=== PATIENT | female | born 1945 | race Caucasian/White ===

== ENCOUNTER 2024-11-09 10:43 | Inpatient (IN) | payer MEDICARE, OTHER, SELFPAY ==
--- NOTE | 2024-09-22 12:27 | CM ---
Cm reviewed medical records. Patient confirmed demographics. Patient lives independently with in a [place] community. Patient does not have a history of VN or SNF. Patient does have an ice machine is currently working with Ryan from [facility]
regarding required equipment. Patient is active with PCP. Patient has medication coverage.
Patient's daughter who is a nurse practitioner will be available for support post operatively and will be staying with overnight.
Patient has made her outpatient PT appointments at [facility] 11/13.
PLAN: home with family support and outpatient PT
[2024-10-25 14:21] VITALS: BMI 26.2
[2024-10-25 14:41] LABS: Hematocrit 39.1 % (37.0-47.0); Hemoglobin 12.7 g/dL (12.0-16.0); Mean Corp Hgb Conc. 32.5 g/dL (33.0-37.0); Mean Corpuscular Volume 87.7 fL (81.0-99.0); Platelet Count 253 10^3/uL (130-400); Red Cell Dist. Width 14.8 % (11.5-14.5)
[2024-10-25 15:29] LABS: ALT (SGPT) < 10 U/L (0-35); AST (SGOT) 20 U/L (14-36); Albumin 3.7 g/dl (3.5-5.0); Alkaline Phosphatase 133 U/L (38-126); Blood Urea Nitrogen 11 mg/dl (7-17); Calcium 9.5 mg/dl (8.4-10.2); Carbon Dioxide 27 mmol/L (22-30); Chloride 108 mmol/L (98-107); Estimated Creatinine Clearance 64 ml/min; Glucose 91 mg/dl (70-99); Potassium 5.1 mmol/L (3.5-5.1); Sodium 140 mmol/L (135-145); Total Protein 6.0 g/dl (6.3-8.2); eGFR > 60.00
[2024-10-26 08:50] LABS: Glycohemoglobin (HgbA1c) 6.2 % (4.0-5.6)
[2024-11-03 08:32] VITALS: BMI 26.2
[2024-11-09] VITALS (7 sets, daily range): BP systolic 110–142; BP diastolic 51–70
[2024-11-09] MEDS: TYLENOL 650 MG PO (12:18)
[2024-11-09] MEDS: NORMOSOL-R/PLASMALYTE-A 1000 IV ×2 (12:18→17:11)
--- NOTE | 2024-11-09 13:11 | W.PN.UPDATE ---
Update Note
Progress Note Update
R knee OA s/p R TKA w/ Dr Shukla 11/09/24
- EARLY DISCHARGE
DVT prophylaxis - ASA, b/l venous foot pumps
CAD based on elevated coronary artery calcium score 2018 - continue ASA but at 325 mg dosing x4 weeks for blood clot prevention
HTN - + parameters - monitor BP
GERD, hiatal hernia, and remote GI ulcer with bleed - continue PPI therapy, Pepcid HS
- Minimize NSAIDs
Iron deficiency anemia, on oral supplementation - non-invasive hgb in AM
- Continue PO iron. Consider IV iron
Hypercholesterolemia
Mild valvular disease
Chronic bilateral lower extremity edema
Colon polyps
Diverticulosis
Ocular migraines.
Lumbar degenerative disc disease with stenosis
Left-sided breast cancer, 2019, status post left lumpectomy with lymph node excision, radiation, and previous Letrozole
Overactive bladder
Septic shock, 02/2022, due to UTI
Rosacea
COVID-19, 09/2024, without residual deficits
Remote history of tobacco abuse
--- NOTE | 2024-11-09 15:41 | W.PN.UPDATE ---
Update Note
Progress Note Update
79-year-old female s/p R TKA 11/09/[address] Shukla.
- WBAT RLE with use of walker for assistance.
- Limit active ROM 0-90 degrees. No passive ROM.
- Trend knee brace unlocked from 0-90 degrees; to be worn with all weightbearing activities.
- Obtain repeat x-rays of right knee at 2 week post-op visit.
--- NOTE | 2024-11-09 16:25 | OR.RPT ---
Operative Report
Operative Report
Orthopaedic Surgery Operative Note
DATE OF OPERATION: 11/09/2024
PREOPERATIVE DIAGNOSES: Osteoarthritis, right knee.
POSTOPERATIVE DIAGNOSES: Osteoarthritis, right knee.
OPERATION PERFORMED:
1) Right total knee arthroplasty (CPT 80634)
2) Intraosseous administration of analgesic (CPT 07465)
SURGEON: Salomon Shukla MD
ASSISTANTS: Luis Green PA-C who helped with patient and limb positioning and retraction
ANESTHESIA: Spinal by anesthesia plus intraoperative infusion of morphine into the tibial metaphysis by Dr. Shukla
COMPLICATIONS: Peeling of the periosteum overlying the medial femoral condyle without fracture
ESTIMATED BLOOD LOSS: 20mL
DRAINS: None
TOURNIQUET TIME: 65 minutes.
IMPLANTS:
- Ronen Persona CR Femur, size 8
- Ronen Persona tibia base plate, size C
- Ronen Persona medial constrained articular surface, 12 mm
- DJO [place] bone cement
INDICATIONS: The patient presented to my office with debilitating right knee pain due to osteoarthritis. We reviewed the natural history of this problem, as well as the risks, benefits, and alternatives of various treatment options. The patient
exhausted all nonoperative treatment options and wished to proceed with knee replacement surgery. The patient understood the risks which included, but were not limited to, bleeding, infection, failure to relieve pain, more pain than preop, damage to
blood vessels and nerves, need for reoperation, mechanical failure of the implants, wound healing problems, stiffness, instability, blood clot, pulmonary embolism, myocardial infarction, pneumonia, arrhythmia, CVA, and . The patient accepted
these risks and wished to proceed. All questions were answered, and informed consent was obtained.
PROCEDURE IN DETAIL: The patient was identified in the preoperative holding area. The right knee was identified as the operative site. The patient was taken in the operating room and placed in a supine position on the operating table. Spinal
anesthesia was performed. IV antibiotics and tranexamic acid were administered. An SCD was placed on the left lower extremity. A well-padded tourniquet was placed on the proximal thigh. All bony prominences were well padded. The right lower
extremity was prepped and draped in the usual sterile fashion.
We performed a surgical time-out. An interarticular block was performed with local anesthetic with epinephrine. The limb was exsanguinated with an Esmarch bandage, then the tourniquet was inflated to 250 mmHg. I performed interosseous administration
of morphine-saline solution via a Jamshidi style intraosseous needle into the proximal medial tibial metaphysis as described by Janusz Chandra MD. This was performed to aid in pain control. A midline skin incision was made followed by a medial
parapatellar arthrotomy. A subperiosteal peel was performed on the medial tibia. I excised part of the infrapatellar fat pad to improve our visualization as well as tissue over anterior femur. The patella was everted and the knee was flexed. I
excised the remnants of the anterior and posterior cruciate ligaments as well as tibial and femoral osteophytes with rongeurs. The knee was stiff with marked flexion stiffness to only about 90 degrees. She had a flexion contracture as well. The bone
was markedly osteoporotic, so extra care was taken throughout the exposure and retracting to avoid bony injury.
The knee was flexed, and the extramedullary tibial cutting guide was aligned. [place] was aligned at neutral, rotation was centered on the tibial tubercle, and coronal alignment was aligned with the mechanical axis of the tibia and center of the ankle
joint. The cut height was 2mm off the medial tibia joint surface due to marked varus. The guide was secured into place. The MCL and LCL were protected. The tibia surface was cut. The cut surface was inspected after removal to ensure appropriate
height and slope based on the preoperative plan. The cut was checked with a drop elvin. It was centered nicely at the ankle.
A drill was used to open the femoral canal. The intramedullary distal femoral cutting guide was inserted into the femur. This was set at 5 degrees +1. This was secured into place with three pins. The cut level was checked with an tiffanie wing. The
distal femur was cut through the cutting guide. The IM guide was reinserted to double check that the level of resection was flush and in appropriate alignment.
Sherman�s line and the transepicondylar axis were marked on the femur. The femoral sizing guide was applied to the anterior femur. Pins were inserted, and the 4-in-1 cutting guide was applied and secured into place. The rotation was compared to
Mundo�s line, the transepicondylar axis, and the neutral tibia cut and was found to be appropriate. The width was checked and found to be appropriate and lateralized on the femur. The anterior, posterior, and chamfur cuts were made. A lamina
test rack operator was used to open the flexion gap, and posterior osteophytes were removed with a curved osteotome. There were extensive osteophytes about the tibia and femur. The remnant medial and lateral meniscus were also removed. I prophylactically
cauterized the lateral geniculate arteries. A 10mm spacer block was applied to the flexion gap and was noted to be balanced medially and laterally. The knee was extended, and the block showed symmetric to extension and flexion gaps.
The tibia was exposed and sized. Rotation was set in line with the tibial tubercle and congruent with the femur. The trial was secured into place with two pins. The trial femur was impacted into place, and a trial articular surface was placed. The
knee was taken through range of motion and noted to be stable throughout the arc of motion without gaping or excess tension. The patella tracked centrally throughout the arc of motion without need for further releases. There weren't full thickness
cartilage changes on the patella.
The trials were removed. The tibia keel was prepared with the punch and the drill. The bone surfaces were irrigated with sterile saline and dried. The cement was mixed in a vacuum mixer. Cement gun was used to apply cement to the tibial surface and
the undersurface of the tibial implant. Cement was pressurized into the tibial canal and tibia surface. The tibial component was impacted into place. Excess cement was removed. Cement was applied to the femoral surface and the femoral component. The
femoral component was impacted into place, and excess cement removed. A trial articular surface was inserted, and the knee was extended while the cement polymerized. The tourniquet was let down, and meticulous hemostasis was achieved. Dilute
betadine was poured into the wound and allowed to soak for 3 minutes. The knee was irrigated with copious normal saline.
As the cement was hardening, there was noted some periosteal peeling about the medial femoral epicondyle with the small outer shell of bone. The condyle was intact without fracture or instability. Decision was made, in light of this, to use a post
operative hinged knee brace to support the region to prevent avulsion of the MCL. Once the cement was polymerized, the trial articular surface was removed. Any excess cement was removed. The knee was trialed, and the final articular surface was
selected and inserted into the tibial locking mechanism. The knee was reduced. A fresh drape was applied to the surgical field.
The arthrotomy was closed with 0-PDS. Once closed, an interarticular block was performed with local anesthetic with epi. The deep dermal layer was closed with 2-0 PDS, and the subcuticular skin was closed with 3-0 monocryl. A Dermabond Prineo
dressing was applied to the skin in full flexion. Once this was completely dry, a sterile waterproof dressing was applied.
The anesthesia team performed an adductor canal block in the OR. The patient awoke from anesthesia without any difficulties. The sponge and instrument counts were correct x2 at the end of the case.
Plan:
WBAT RLE with hinged knee brace; okay to remove brace when at rest
Active ROM 0-90
No passive motion
Yosi Shukla MD
[2024-11-09] MEDS: ROXICODONE 5 MG PO (17:11)
[2024-11-09] MEDS: ASPIRIN 325 MG PO (17:12)
[2024-11-09] MEDS: PROTONIX 40 MG PO (17:12)
[2024-11-09] MEDS: TYLENOL ORAL SOLUTION 650 MG PO ×3 (17:17→23:02)
[2024-11-09] MEDS: FEOSOL 325 MG PO (17:18)
--- NOTE | 2024-11-09 18:08 | PTCARENOTE ---
Pt arrived 1600 from PACU. Pt AAOX3. VSS. Pain 09/12 medicated per JUN. neurovascular checks WNL. Immobilizer in place R knee. Bed locked and in lowest position. oriented to room and call davis. care on going
[2024-11-09] MEDS: ZOFRAN 4 MG IV (18:47)
[2024-11-09] MEDS: DILAUDID 0.5 MG IV ×2 (19:36→22:41)
[2024-11-09] MEDS: SENOKOT PO (20:42)
[2024-11-09] MEDS: DECADRON 4 MG PO (20:42)
[2024-11-09] MEDS: COLACE PO (20:42)
[2024-11-09] MEDS: BACTROBAN 2% OINTMENT 1 APPLIC NASAL (20:43)
[2024-11-09] MEDS: NEURONTIN 300 MG PO (22:07)
[2024-11-09] MEDS: PEPCID 20 MG PO (22:07)
[2024-11-09] MEDS: CRESTOR 40 MG PO (22:07)
[2024-11-09] MEDS: ANCEF 5 IV (22:07)
[2024-11-10] MEDS: ROXICODONE 10 MG PO ×2 (02:22→08:05)
[2024-11-10 03:33] VITALS: BP 103/56
[2024-11-10] MEDS: TYLENOL ORAL SOLUTION PO (05:00)
[2024-11-10] MEDS: ANCEF 5 IV (05:28)
[2024-11-10 07:25] VITALS: BP 126/61
[2024-11-10] MEDS: ASPIRIN 325 MG PO (08:06)
[2024-11-10] MEDS: SENOKOT 17.2 MG PO (08:06)
[2024-11-10] MEDS: COLACE 100 MG PO (08:06)
[2024-11-10] MEDS: DECADRON 4 MG PO (08:06)
[2024-11-10] MEDS: TYLENOL ORAL SOLUTION 650 MG PO (08:07)
[2024-11-10] MEDS: PROTONIX 40 MG PO (08:07)
[2024-11-10] MEDS: BACTROBAN 2% OINTMENT 1 APPLIC NASAL (08:08)
[2024-11-10] MEDS: FEOSOL 325 MG PO (08:10)
[2024-11-10 08:45] VITALS: BP 126/61; PULSE 78; O2SAT 100
--- NOTE | 2024-11-10 09:02 | W.PN.ORTHO ---
Today's Communication / Plan
-
D/c this AM if clinically stable, does well w/ PT and OT.
Assessment
.
Distal Motor Intact: Yes
Dressing:
Clean, dry and intact.
Assessment:
R knee OA s/p R TKA w/ Dr Shukla 11/09/24
- EARLY DISCHARGE
- WBAT RLE with use of walker for assistance.
- Limit active ROM 0-90 degrees. No passive ROM.
- Trend knee brace unlocked from 0-90 degrees; to be worn with all weightbearing activities.
- Obtain repeat x-rays of right knee at 2 week post-op visit.
DVT prophylaxis - ASA, b/l venous foot pumps
CAD based on elevated coronary artery calcium score 2018 - continue ASA but at 325 mg dosing x4 weeks for blood clot prevention
HTN - + parameters - BPs overall stable
GERD, hiatal hernia, and remote GI ulcer with bleed - continue PPI therapy, Pepcid HS
- Minimize NSAIDs
Iron deficiency anemia, on oral supplementation - non-invasive hgb to be assessed prior to d/c
- Continue PO iron. Consider IV iron
Hypercholesterolemia
Mild valvular disease
Chronic bilateral lower extremity edema
Colon polyps
Diverticulosis
Ocular migraines.
Lumbar degenerative disc disease with stenosis
Left-sided breast cancer, 2019, status post left lumpectomy with lymph node excision, radiation, and previous Letrozole
Overactive bladder
Septic shock, 02/2022, due to UTI
Rosacea
COVID-19, 09/2024, without residual deficits
Remote history of tobacco abuse
Plan
.
Surgery / Date: R TKA w/ Dr Shukla 11/09/24
DVT Prophylaxis: Aspirin
Activity:
Out of bed.
PT/OT
Discharge Plan: Home w/ Outpatient PT
Subjective
.
.:
Patient examined resting in bed.
R knee pain bothersome overnight - pain meds adjusted.
Nausea yesterday improved w/ Zofran x1.
Denies any other acute complaints.
Eager for potential d/c today.
Vital Signs and Labs
.
Vital Signs and Labs:
Lab Results
10/25/24 12:46
10/25/24 12:46
Temp Pulse Resp BP Pulse Ox
98.3 F 78 16 126/61 100
11/10/24 07:25 08 07:25 11/10/24 07:25 11/10/24 08:08 11/10/24 07:25
Physical Exam
-
HEENT: No pallor, cyanosis, or jaundice. Throat clear.
NECK: Supple. No JVD.
RESPIRATORY: Lungs clear to auscultation.
CVS: S1, S2 normal. RRR.�
ABDOMEN: Soft, non-tender. No distension.
EXTREMITIES: Strength equal, no calf pain with palpation/dorsiflexion. Calves soft.
RECORDIST CHIEF: AOx3. No focal deficits. seam press operator grossly intact
[2024-11-10 09:50] VITALS: BP 126/61; PULSE 78; O2SAT 100
--- NOTE | 2024-11-10 09:59 | W.DS.TRANS ---
DC Summary - Replacer
-
Discharge Instructions:
Sleep Apnea Risk Low
Discharge Diagnosis/Procedures R knee OA s/p R TKA w/ Dr Shukla 11/09/24
Diet Regular
Additional Diets Adequate hydration, minimize opioids, and wear
TEDs to help avoid low blood pressure/dizziness.
Activity As tolerated,With Walker
Additional Activity No passive flexion and no active flexion past 90
degrees. Trend knee brace unlocked from 0-90
degrees; to be worn with all weightbearing
activities.
Driving Restrictions Not until seen by your Dr
Bathing Restrictions OK to Shower
Other Services PT
Wound Care Leave dressing on until seen by surgeon's office
for follow-up in 2 weeks.
Instructions:
Stand-Alone Forms: Total Hip/Knee Replacement D/C
Changes to Home Medications: Yes
Discharge Medications:
DC Medications w/original date entered in [facility]
esomeprazole magnesium 40 mg capsule,delayed release (Nexium) 40 mg PO DAILY Gastrointestinal issue 12/11/18
rosuvastatin 40 mg tablet 40 mg PO HS High cholesterol 02/04/22
biotin 1 dose PO DAILY Supplement 10/24/24
calcium 500 mg (as carbonate)-vitamin D3 3.125 mcg (125 unit) tablet 1 tab PO DAILY Supplement 10/24/24
famotidine 20 mg tablet (Pepcid AC) 20 mg PO HS Gastrointestinal Issue 10/24/24
iron 1 tab PO DAILY Anemia 10/24/24
clobetasol 0.05 % topical cream 1 applic topical MOFR 10/25/24
metronidazole 1 % topical gel 1 applic topical DAILY face gel 10/25/24
mupirocin 2 % topical ointment 1 applic intranasal BID #1 tube 10/25/24
acetaminophen 500 mg tablet (Tylenol Extra Strength) 1,000 mg (2 x 500 mg) PO Q6H #60 tabs 11/10/24
aspirin 325 mg tablet 325 mg PO DAILY #30 tabs 11/10/24
dexamethasone 4 mg tablet 4 mg PO BID Anti-inflammatory #5 tabs 11/10/24
docusate sodium 100 mg capsule 100 mg PO BID #30 caps 11/10/24
gabapentin 300 mg capsule 300 mg PO BID neuropathic pain #20 caps 11/10/24
hydrochlorothiazide 25 mg tablet 25 mg PO DAILY Fluid retention/Swelling #1 tab 11/10/24
lidocaine 4 % topical patch 2 patch topical DAILY #30 ea 11/10/24
lisinopril 2.5 mg tablet 2.5 mg PO DAILY Blood Pressure #1 tab 11/10/24
ondansetron 4 mg disintegrating tablet 4 mg PO Q6H PRN nausea and vomiting #30 tabs 11/10/24
oxycodone 5 mg tablet 5 - 10 mg (1 - 2 x 5 mg) PO Q6H PRN moderate-severe pain #30 tabs 11/10/24
sennosides 8.6 mg tablet (Rebecca-[employer]) 17.2 mg (2 x 8.6 mg) PO BID #30 tabs 11/10/24
Home Medication Changes
acetaminophen 500 mg tablet (Tylenol Extra Strength) 1,000 mg (2 x 500 mg) PO Q6H #60 tabs 11/10/24
aspirin 325 mg tablet 325 mg PO DAILY #30 tabs 11/10/24
dexamethasone 4 mg tablet 4 mg PO BID Anti-inflammatory #5 tabs 11/10/24
docusate sodium 100 mg capsule 100 mg PO BID #30 caps 11/10/24
gabapentin 300 mg capsule 300 mg PO BID neuropathic pain #20 caps 11/10/24
lidocaine 4 % topical patch 2 patch topical DAILY #30 ea 11/10/24
ondansetron 4 mg disintegrating tablet 4 mg PO Q6H PRN nausea and vomiting #30 tabs 11/10/24
oxycodone 5 mg tablet 5 - 10 mg (1 - 2 x 5 mg) PO Q6H PRN moderate-severe pain #30 tabs 11/10/24
sennosides 8.6 mg tablet (Rebecca-[employer]) 17.2 mg (2 x 8.6 mg) PO BID #30 tabs 11/10/24
Pending Results: No
[2024-11-10] MEDS: LIDOCAINE 4% PATCH 2 PATCH TOPICAL (10:13)
[2024-11-10] MEDS: NEURONTIN 200 MG PO (10:13)
[2024-11-10] MEDS: TORADOL 15 MG IV (10:14)
--- NOTE | 2024-11-10 10:23 | CM ---
Cm reviewed medical records. Patient enthusiatic for home discharge. Family in room. IMM given.
PLAN: home with outpatient PT.
[2024-11-10 10:50] VITALS: BP 132/68
== END 2024-11-10 11:40 | disposition home or self-care (01) | DRG 470 ==
LOC: 2 SOUTH 10:43
PROVIDERS: ADMITTING PHYSICIAN Orthopaedic Surgery; FAMILY PHYSICIAN Family Medicine; REFERRING PHYSICIAN Internal Medicine Cardiovascular Disease
PROC: 0SRC0J9 Replacement of Right Knee Joint with Synthetic Substitute, Cemented, Open Approach (ICD-10-PCS; 2024-11-09)
DX: M17.11 Unilateral primary osteoarthritis, right knee (principal); K21.9 Gastro-esophageal reflux disease without esophagitis; I10 Essential (primary) hypertension; I25.10 Atherosclerotic heart disease of native coronary artery without angina pectoris; E78.00 Pure hypercholesterolemia, unspecified; D50.9 Iron deficiency anemia, unspecified; G43.109 Migraine with aura, not intractable, without status migrainosus; K44.9 Diaphragmatic hernia without obstruction or gangrene; K57.30 Diverticulosis of large intestine without perforation or abscess without bleeding; L71.9 Rosacea, unspecified; M51.369 Other intervertebral disc degeneration, lumbar region without mention of lumbar back pain or lower extremity pain; N32.81 Overactive bladder; R60.0 Localized edema; Z79.899 Other long term (current) drug therapy; Z87.891 Personal history of nicotine dependence
CPT/HCPCS: 36415; 73560; 80053; 83036; 85027; 87070; 97110; 97163; 97166; 97535; C1713; C1776